=== PATIENT | male | born 1955 | race Caucasian/White ===

== ENCOUNTER 2018-09-12 15:12 | Emergency (ER) | payer OTHER ==
[~2018-09-12] VITALS: Ht 170.2 cm; Wt 70.0 kg
[2018-09-12 15:26] VITALS: Ht 170.2 cm; Wt 70.0 kg
[2018-09-12] MEDS ORDERED: SOD CHLORIDE 0.9% 1,000 ML IV STA (16:05)
[2018-09-12] MEDS ORDERED: METF100010 PO (17:03)
[2018-09-12] MEDS ORDERED: CLOT30CR24 TOP (17:04)
[2018-09-12] MEDS ORDERED: LISI-471 PO (17:04)
[2018-09-12] MEDS ORDERED: GABA300C16 PO (17:04)
[2018-09-12] MEDS ORDERED: ATOR20TA38 PO (17:05)
[2018-09-12] MEDS ORDERED: IBUP-1542 PO (17:05)
[2018-09-12] MEDS ORDERED: SITA100T11 PO (17:05)
[2018-09-12] MEDS ORDERED: ASPI-903 PO (17:06)
[2018-09-12] MEDS ORDERED: SOD CHLORIDE 0.9% 1,000 ML IV ONE (18:30)
--- NOTE | 2018-09-12 19:49 | ERD ---
ER Documentation Chief Complaint Chief Complaint dizziness with upper back pain HPI This is a 62-year-old male who is here for feeling a little bit dizzy. They checked his blood pressure and heart rate is bradycardic his blood pressure was in the 90s systolic. The patient says that he takes many medications but is not sure what they are. He is on blood pressure meds. He has no chest pain no nausea vomiting diarrhea no decrease in urine output. He says he feels normal. ROS All systems reviewed and are negative except as per history of present illness. Medications Home Meds Reported Medications Aspirin* (Aspirin* Chew) 81 Mg Tab.chew, 81 MG PO DAILY, TAB.CHEW 09/12/18 Atorvastatin Calcium* (Atorvastatin Calcium*) 20 Mg Tablet, 20 MG PO QHS, #30 TAB 09/12/18 Sitagliptin* (Januvia*) 100 Mg Tablet, 100 MG PO DAILY, #30 TAB 09/12/18 Ibuprofen* (Ibuprofen*) 600 Mg Tablet, 600 MG PO Q8, TAB 09/12/18 Gabapentin* (Gabapentin*) 300 Mg Capsule, 300 MG PO TID, #90 CAP 09/12/18 Lisinopril* (Lisinopril*) 20 Mg Tablet, 20 MG PO DAILY, #30 TAB 09/12/18 Clotrimazole* (Clotrimazole* AF) 1% - 30 Gm Cream.gm., 1 APPLIC TOP BID, TUB 09/12/18 Metformin Hcl* (Metformin Hcl*) 1,000 Mg Tablet, 1000 MG PO WITH BREAKFAST DINNE, #60 TAB 09/12/18 Allergies Allergies: Coded Allergies: No Known Allergy (Unverified , 09/12/18) PMhx/Soc History of Surgery: Yes (RT HAND & RT HIP ORIF) Anesthesia Reaction: No Hx Neurological Disorder: No Hx Respiratory Disorders: No Hx Cardiac Disorders: Yes (HTN) Hx Psychiatric Problems: No Hx Miscellaneous Medical Probl: No Hx Alcohol Use: No Hx Substance Use: No Hx Tobacco Use: No Smoking Status: Never smoker FmHx Family History: No coronary disease Physical Exam Vitals Vital Signs Date Temp Pulse Resp B/P (MAP) Pulse Ox O2 O2 Flow FiO2 Time Delivery Rate 09/12/18 47 17 98/76 (83) 95 Nasal 2.0 17:56 Cannula 09/12/18 50 18 102/75 99 Room Air 16:06 (84) 09/12/18 Nasal 2 15:35 Cannula 09/12/18 98.1 50 18 91/68 (76) 100 15:26 Physical Exam Const: Well-developed, well-nourished Head: Atraumatic, normocephalic Eyes: Normal Conjunctiva, PERRLA, EOMI, normal sclera, no nystagmus ENT: Normal External Ears, Nose and Mouth, moist mucus membranes. Neck: Full range of motion. No meningismus, no lymphadenopathy. Resp: Clear to auscultation bilaterally, no wheezing, rhonchi, rales Cardio: Bradycardic heart rate 46, no murmurs, S1 S2 present] Abd: Soft, non tender x 4, non distended. Normal bowel sounds, no guarding or rebound, no pulsitile abdominal masses or bruits Skin: No petechiae or rashes, no ecchymosis , no maculopapular rash Back: No midline or flank tenderness Ext: No cyanosis, or edema, FROM x 4, normal inspection, neurovascularly intact x 4 Neur: Awake and alert, STR 5/5 x 4, sensation intact x 4, no focal findings, cerebellum intact Psych: Normal Mood and Affect Result Diagram: 09/12/18 1641 09/12/18 1641 Results 24 hrs Laboratory Tests Test 09/12/18 16:41 09/12/18 16:44 White Blood Count 5.9 10^3/ul Red Blood Count 4.36 10^6/ul Hemoglobin 14.1 g/dl Hematocrit 41.6 % Mean Corpuscular Volume 95.4 fl Mean Corpuscular Hemoglobin 32.3 pg Mean Corpuscular Hemoglobin Concent 33.9 g/dl Red Cell Distribution Width 12.0 % Platelet Count 203 10^3/UL Mean Platelet Volume 9.7 fl Immature Granulocytes % 0.200 % Neutrophils % 64.2 % Lymphocytes % 26.0 % Monocytes % 7.5 % Eosinophils % 1.4 % Basophils % 0.7 % Nucleated Red Blood Cells % 0.0 /100WBC Immature Granulocytes # 0.010 10^3/ul Neutrophils # 3.8 10^3/ul Lymphocytes # 1.5 10^3/ul Monocytes # 0.4 10^3/ul Eosinophils # 0.1 10^3/ul Basophils # 0.0 10^3/ul Nucleated Red Blood Cells # 0.0 10^3/ul Sodium Level 137 mmol/L Potassium Level 5.2 mmol/L Chloride Level 103 mmol/L Carbon Dioxide Level 27 mmol/L Anion Gap 7 Blood Urea Nitrogen 23 mg/dl Creatinine 0.91 mg/dl Est Glomerular Filtrat Rate mL/min > 60 mL/min Glucose Level 201 mg/dl Calcium Level 9.0 mg/dl Total Bilirubin 0.4 mg/dl Direct Bilirubin 0.00 mg/dl Indirect Bilirubin 0.4 mg/dl Aspartate Amino Transf (AST/SGOT) 36 IU/L Alanine Aminotransferase (ALT/SGPT) 39 IU/L Alkaline Phosphatase 82 IU/L Troponin I < 0.012 ng/ml Total Protein 7.3 g/dl Albumin 3.8 g/dl Globulin 3.50 g/dl Albumin/Globulin Ratio 1.08 Bedside Glucose 210 mg/dL Current Medications Medications Dose Sig/Vinnie Start Time Status Last (Trade) Ordered Route PRN Stop Time Admin Dose Reason Admin Sodium 1,000 ml @ Q1H STAT 09/12/18 DC 09/12/18 Chloride 1,000 mls/hr IV 16:05 15:40 09/12/18 17:04 Sodium 1,000 ml @ Q1H ONCE 09/12/18 DC 09/12/18 Chloride 1,000 mls/hr IV 18:30 18:29 09/12/18 19:29 Procedures/MDM Patient's blood work is stable. He received 2 L of fluids and we had an here for observation for several hours. His heart rate is increased and his blood pressure is increased. Currently his blood pressure is 118/92. Heart rate is 57. The patient was ambulated in the ER without any difficulty he was completely asymptomatic. This may be combination of low volume status as well as too much blood pressure medication. I advised him to hold his blood pressure meds tonight and restart them tomorrow and have adequate water intake Departure Diagnosis: Primary Impression: Hypotension Hypotension type: unspecified hypotension type Qualified Codes: I95.9 - Hypotension, unspecified Additional Impression: Dizziness Condition: Stable Patient Instructions: Bradycardia, Dizziness, Unk Cause, Hypotension, All Causes Additional Instructions: do not take your blood pressure medication VERONICA Christianson DO Sep 12, 2018 19:49
[2018-09-12] MEDS ORDERED: LORA1TAB PO (19:51)
[2018-09-12 19:54] VITALS: BP 118/92; PULSE 68; RESP 16
== END 2018-09-12 19:56 | disposition home or self-care (01) ==
LOC: E/R 15:12
DX: I95.9 Hypotension, unspecified (principal); I10 Essential (primary) hypertension; R40.2142 Coma scale, eyes open, spontaneous, at arrival to emergency department; R40.2362 Coma scale, best motor response, obeys commands, at arrival to emergency department; R40.2252 Coma scale, best verbal response, oriented, at arrival to emergency department; Z79.82 Long term (current) use of aspirin; Z79.84 Long term (current) use of oral hypoglycemic drugs
CPT/HCPCS: 80053; 82962; 84484; 85025; 93005; J7030; 36415; 96360